=== PATIENT | female | born 1935 | race Caucasian/White ===

== ENCOUNTER 2021-09-30 13:22 | Inpatient (IN) | payer MEDICARE, BC ==
[2021-09-30 14:01] LABS: Bilirubin Neg (Negative); Blood, Urine 10 (Negative); Clarity Clear (Clear); Glucose, Urine (Dipstick) Normal (Negative); Ketone, Urine 5 mg/dL (Negative); Leukocyte Negative (Negative); Nitrite Negative (Negative); Protein, Urine (Dipstick) Negative (Neg-Trace); Specific Gravity, Urine 1.005 (1.002-1.036); Urobilinogen Normal mg/dL (Less than 2)
[2021-09-30 14:16] LABS: Bacteria/HPF Rare-Few HPF (None Seen); RBC/HPF 0-3 HPF (0-3); Squamous Epithelial 0-3 HPF (0-3); WBC/HPF 0-3 HPF (0-3)
[2021-09-30 14:58] LABS: ALT (SGPT) 81 U/L (8-55); AST (SGOT) 36 U/L (5-34); Albumin 4.1 g/dL (3.4-4.8); Alkaline Phosphatase 69 U/L (40-110); Anion Gap 14 mmol/L (10-20); BUN (Urea Nitrogen) 7 mg/dL (9.8-20.1); Bilirubin, Total 0.9 mg/dL (0.2-1.2); Calc. Creatinine Clearance 0 mL/min (70-130); Calcium 10.5 mg/dL (7.8-10.44); Carbon Dioxide 28 mmol/L (23-31); Estimated GFR 92; Globulin 2.6 g/dL (2.4-3.5); Glucose 155 mg/dL (83-110); Potassium 3.5 mmol/L (3.5-5.1); Protein, Total 6.7 g/dL (5.8-8.1)
[2021-09-30 15:07] LABS: Chloride 71 mmol/L (98-107); Sodium 109 mmol/L (136-145)
[2021-09-30 15:39] LABS: Hemoglobin 15.8 g/dL (12.0-15.5); Mean Corpuscular HGB CONC 40.7 g/dL (32.0-36.0); Mean Corpuscular Hemoglobin 32.3 pg (27.0-33.0); Mean Corpuscular Volume 79.3 fl (81.6-98.3); Mean Platelet Volume 9.1 fl (7.4-10.4); Platelet Count 466 10x3/uL (150-450); RBC Distribution Width 11.5 % (11.5-14.5); Red Blood Cell (RBC) Count 4.89 10x6/uL (3.90-5.03); White Blood Cell (WBC) Count 13.1 10x3/uL (3.5-10.5)
[2021-09-30 15:40] LABS: #Monocytes 1.3 10x3/uL (0.0-1.1); #Neutrophils 11.2 10x3/uL (1.5-8.4); %Basophils 0.2 % (0.0-2.0); %Eosinophils 0.2 % (0.0-6.0); %Lymphocytes 2.7 % (18.0-47.0); %Monocytes 10.2 % (0.0-10.0); %Neutrophils 85.6 % (40.0-75.0)
[2021-09-30] MEDS ORDERED: Ondansetron PF 4 MG/2 ML Vial ONE (16:09)
[2021-09-30] MEDS ORDERED: Sodium Chloride 0.9% 500 ML IV SCH (16:45)
[2021-09-30] MEDS ORDERED: Sodium Chloride 3% 500 ML IVPB SCH (16:45)
[2021-09-30] MEDS ORDERED: SODIUM CHLORIDE 3% IVPB SCH (17:00)
[2021-09-30] MEDS ORDERED: Acetaminophen 325 MG TAB PO PRN (18:03)
[2021-09-30] MEDS ORDERED: Ondansetron PF 4 MG/2 ML Vial IVP PRN (18:03)
[2021-09-30] MEDS ORDERED: Ondansetron ODT 4 MG TAB PO PRN (18:03)
[2021-09-30] MEDS ORDERED: Insulin Regular 300 UNITS/3 ML VIAL SC PRN (18:08)
[2021-09-30] MEDS ORDERED: Dextrose 5% in Water 1,000 ML IV PRN (18:08)
[2021-09-30] MEDS ORDERED: Dextrose 50% Abboject 50 ML SYRINGE SLOW IVP PRN (18:08)
[2021-09-30 19:35] LABS: Anion Gap 12 mmol/L (10-20); BUN (Urea Nitrogen) 6 mg/dL (9.8-20.1); Calc. Creatinine Clearance 124 mL/min (70-130); Calcium 9.6 mg/dL (7.8-10.44); Carbon Dioxide 27 mmol/L (23-31); Chloride 75 mmol/L (98-107); Estimated GFR 93; Glucose 133 mg/dL (83-110); Potassium 3.1 mmol/L (3.5-5.1)
[2021-09-30 19:52] LABS: Sodium 111 mmol/L (136-145)
[2021-09-30] MEDS ORDERED: Potassium Chloride 20 MEQ TAB PO SCH (20:15)
[2021-09-30] MEDS ORDERED: Famotidine 20 MG TAB PO SCH (21:00)
[2021-09-30 22:07] LABS: Glucose 158 mg/dL (83-110)
[2021-09-30 23:22] LABS: Anion Gap 10 mmol/L (10-20); BUN (Urea Nitrogen) 12 mg/dL (9.8-20.1); Calc. Creatinine Clearance 109 mL/min (70-130); Calcium 9.1 mg/dL (7.8-10.44); Carbon Dioxide 28 mmol/L (23-31); Chloride 77 mmol/L (98-107); Estimated GFR 90; Glucose 107 mg/dL (83-110); Potassium 3.2 mmol/L (3.5-5.1)
[2021-09-30 23:31] LABS: Sodium 112 mmol/L (136-145)
[2021-10-01 06:18] LABS: Anion Gap 11 mmol/L (10-20); BUN (Urea Nitrogen) 12 mg/dL (9.8-20.1); Calc. Creatinine Clearance 113 mL/min (70-130); Calcium 8.9 mg/dL (7.8-10.44); Carbon Dioxide 27 mmol/L (23-31); Chloride 78 mmol/L (98-107); Estimated GFR 91; Glucose 110 mg/dL (83-110); Potassium 3.5 mmol/L (3.5-5.1)
[2021-10-01 06:27] LABS: Sodium 112 mmol/L (136-145)
[2021-10-01 06:59] LABS: #Eosinphils 0.1 10x3/uL (0.0-0.5); #Monocytes 1.9 10x3/uL (0.0-1.1); #Neutrophils 11.1 10x3/uL (1.5-8.4); %Basophils 0.1 % (0.0-2.0); %Eosinophils 0.9 % (0.0-6.0); %Lymphocytes 3.5 % (18.0-47.0); %Neutrophils 80.6 % (40.0-75.0); Hemoglobin 12.9 g/dL (12.0-15.5); Mean Corpuscular HGB CONC 38.4 g/dL (32.0-36.0); Mean Corpuscular Hemoglobin 31.2 pg (27.0-33.0); Mean Corpuscular Volume 81.2 fl (81.6-98.3); Mean Platelet Volume 8.3 fl (7.4-10.4); Platelet Count 437 10x3/uL (150-450); RBC Distribution Width 11.8 % (11.5-14.5); Red Blood Cell (RBC) Count 4.14 10x6/uL (3.90-5.03); White Blood Cell (WBC) Count 13.8 10x3/uL (3.5-10.5)
[2021-10-01] MEDS: Famotidine 20 MG TAB PO SCH ×2 (07:52→20:26)
[2021-10-01] MEDS: Enoxaparin Sodium 40 MG/0.4 ML SYRINGE SC SCH (07:52)
[2021-10-01 08:20] LABS: Glucose 100 mg/dL (83-110)
[2021-10-01 10:29] LABS: Sodium 114 mmol/L (136-145)
[2021-10-01] MEDS ORDERED: Potassium Chloride 20 MEQ TAB PO SCH ×2 (13:15→19:45)
[2021-10-01] MEDS ORDERED: Sodium Chloride 1 GM TAB PO SCH (15:00)
[2021-10-01] MEDS: Guaifenesin DM 100-10/5 ML UDCUP PO PRN ×2 (19:18→23:31)
[2021-10-01 19:25] LABS: Potassium 3.4 mmol/L (3.5-5.1)
[2021-10-01 19:33] LABS: Sodium 119 mmol/L (136-145)
[2021-10-02 04:36] LABS: Anion Gap 13 mmol/L (10-20); BUN (Urea Nitrogen) 14 mg/dL (9.8-20.1); Calc. Creatinine Clearance 117 mL/min (70-130); Carbon Dioxide 25 mmol/L (23-31); Chloride 86 mmol/L (98-107); Estimated GFR 92; Glucose 103 mg/dL (83-110); Potassium 4.1 mmol/L (3.5-5.1); Sodium 120 mmol/L (136-145)
[2021-10-02] MEDS: Famotidine 20 MG TAB PO SCH ×2 (08:17→21:04)
[2021-10-02] MEDS: Enoxaparin Sodium 40 MG/0.4 ML SYRINGE SC SCH (08:17)
[2021-10-02] MEDS: Guaifenesin DM 100-10/5 ML UDCUP PO PRN (11:03)
[2021-10-02 11:15] VITALS: BMI 36.1
[2021-10-02 15:53] LABS: Anion Gap 15 mmol/L (10-20); BUN (Urea Nitrogen) 15 mg/dL (9.8-20.1); Calc. Creatinine Clearance 104 mL/min (70-130); Calcium 9.2 mg/dL (7.8-10.44); Carbon Dioxide 26 mmol/L (23-31); Chloride 89 mmol/L (98-107); Estimated GFR 90; Glucose 133 mg/dL (83-110); Potassium 4.4 mmol/L (3.5-5.1); Sodium 126 mmol/L (136-145)
[2021-10-02] MEDS: HumaLOG 300 UNITS/3 ML VIAL SC PRN (16:54)
[2021-10-02 17:05] LABS: Magnesium 1.8 mg/dL (1.6-2.6)
[2021-10-02] MEDS ORDERED: Dextrose 5% in Water 1,000 ML IV SCH (17:30)
[2021-10-02] MEDS ORDERED: Bisacodyl 5 MG TAB PO SCH (20:45)
[2021-10-02] MEDS: Artificial Tear Sol 15 ML BOT EA EYE SCH (21:03)
[2021-10-02 21:05] LABS: Anion Gap 13 mmol/L (10-20); BUN (Urea Nitrogen) 20 mg/dL (9.8-20.1); Calc. Creatinine Clearance 76 mL/min (70-130); Carbon Dioxide 27 mmol/L (23-31); Chloride 90 mmol/L (98-107); Estimated GFR 75; Glucose 139 mg/dL (83-110); Potassium 3.9 mmol/L (3.5-5.1); Sodium 126 mmol/L (136-145)
[2021-10-03 05:18] LABS: Anion Gap 14 mmol/L (10-20); BUN (Urea Nitrogen) 14 mg/dL (9.8-20.1); Calc. Creatinine Clearance 110 mL/min (70-130); Calcium 8.9 mg/dL (7.8-10.44); Carbon Dioxide 26 mmol/L (23-31); Chloride 91 mmol/L (98-107); Estimated GFR 91; Glucose 127 mg/dL (83-110); Potassium 3.4 mmol/L (3.5-5.1); Sodium 128 mmol/L (136-145)
[2021-10-03] MEDS ORDERED: Amlodipine 5 MG TAB PO SCH (07:00)
[2021-10-03] MEDS ORDERED: Polyethylene Glycol 3350 17 GM Packet PO PRN (09:00)
[2021-10-03] MEDS: Ezetimibe 10 MG TAB PO SCH (10:14)
[2021-10-03] MEDS: Enoxaparin Sodium 40 MG/0.4 ML SYRINGE SC SCH (10:14)
[2021-10-03] MEDS: Famotidine 20 MG TAB PO SCH ×2 (10:14→20:58)
[2021-10-03] MEDS: Aspirin 81 mg Enteric Coated Tablet PO SCH (10:14)
[2021-10-03] MEDS: Artificial Tear Sol 15 ML BOT EA EYE SCH ×2 (10:15→20:58)
[2021-10-03 13:09] LABS: Anion Gap 13 mmol/L (10-20); BUN (Urea Nitrogen) 13 mg/dL (9.8-20.1); Calc. Creatinine Clearance 104 mL/min (70-130); Calcium 8.7 mg/dL (7.8-10.44); Carbon Dioxide 26 mmol/L (23-31); Chloride 90 mmol/L (98-107); Estimated GFR 90; Glucose 205 mg/dL (83-110); Potassium 3.3 mmol/L (3.5-5.1); Sodium 126 mmol/L (136-145)
[2021-10-03] MEDS ORDERED: Potassium Chloride 20 MEQ TAB PO SCH (15:00)
[2021-10-03] MEDS: HumaLOG 300 UNITS/3 ML VIAL SC PRN (20:59)
[2021-10-03] MEDS ORDERED: Metoprolol Tartrate 25 MG TAB PO SCH (22:15)
[2021-10-04 04:57] LABS: Anion Gap 13 mmol/L (10-20); BUN (Urea Nitrogen) 11 mg/dL (9.8-20.1); Calc. Creatinine Clearance 121 mL/min (70-130); Calcium 8.9 mg/dL (7.8-10.44); Carbon Dioxide 26 mmol/L (23-31); Chloride 95 mmol/L (98-107); Estimated GFR 93; Glucose 103 mg/dL (83-110); Potassium 4.4 mmol/L (3.5-5.1); Sodium 130 mmol/L (136-145)
[2021-10-04] MEDS ORDERED: hydrALAZINE 20 MG/ML VIAL SLOW IVP SCH (06:00)
[2021-10-04] MEDS: Ezetimibe 10 MG TAB PO SCH (09:22)
[2021-10-04] MEDS: Famotidine 20 MG TAB PO SCH ×2 (09:22→21:59)
[2021-10-04] MEDS: Aspirin 81 mg Enteric Coated Tablet PO SCH (09:22)
[2021-10-04] MEDS: Metoprolol Tartrate 25 MG TAB PO SCH ×2 (09:22→22:45)
[2021-10-04] MEDS: Amlodipine 10 MG TAB PO SCH (09:22)
[2021-10-04] MEDS: Enoxaparin Sodium 40 MG/0.4 ML SYRINGE SC SCH (09:22)
[2021-10-04] MEDS: Artificial Tear Sol 15 ML BOT EA EYE SCH ×2 (09:23→22:06)
[2021-10-05 09:18] LABS: Anion Gap 12 mmol/L (10-20); BUN (Urea Nitrogen) 14 mg/dL (9.8-20.1); Calc. Creatinine Clearance 106 mL/min (70-130); Calcium 9.3 mg/dL (7.8-10.44); Carbon Dioxide 30 mmol/L (23-31); Chloride 93 mmol/L (98-107); Estimated GFR 90; Glucose 137 mg/dL (83-110); Sodium 131 mmol/L (136-145)
[2021-10-05] MEDS: Artificial Tear Sol 15 ML BOT EA EYE SCH ×2 (12:06→22:15)
[2021-10-05] MEDS: Famotidine 20 MG TAB PO SCH ×2 (12:06→22:12)
[2021-10-05] MEDS: Metoprolol Tartrate 25 MG TAB PO SCH ×2 (12:06→22:13)
[2021-10-05] MEDS: Enoxaparin Sodium 40 MG/0.4 ML SYRINGE SC SCH (12:06)
[2021-10-05] MEDS: Ezetimibe 10 MG TAB PO SCH (12:06)
[2021-10-05] MEDS: Amlodipine 10 MG TAB PO SCH (12:07)
[2021-10-05] MEDS: Aspirin 81 mg Enteric Coated Tablet PO SCH (12:07)
[2021-10-06] MEDS: Enoxaparin Sodium 40 MG/0.4 ML SYRINGE SC SCH (08:16)
[2021-10-06] MEDS: Amlodipine 10 MG TAB PO SCH (08:16)
[2021-10-06] MEDS: Artificial Tear Sol 15 ML BOT EA EYE SCH (08:16)
[2021-10-06] MEDS: Aspirin 81 mg Enteric Coated Tablet PO SCH (08:16)
[2021-10-06] MEDS: Famotidine 20 MG TAB PO SCH (08:16)
[2021-10-06] MEDS: Metoprolol Tartrate 25 MG TAB PO SCH (08:16)
[2021-10-06] MEDS: Ezetimibe 10 MG TAB PO SCH (08:16)
[2021-10-06 08:30] LABS: Anion Gap 16 mmol/L (10-20); BUN (Urea Nitrogen) 12 mg/dL (9.8-20.1); Calc. Creatinine Clearance 114 mL/min (70-130); Calcium 9.1 mg/dL (7.8-10.44); Carbon Dioxide 25 mmol/L (23-31); Chloride 96 mmol/L (98-107); Estimated GFR 92; Glucose 131 mg/dL (83-110); Potassium 4.2 mmol/L (3.5-5.1); Sodium 133 mmol/L (136-145)
[2021-10-06] MEDS: HumaLOG 300 UNITS/3 ML VIAL SC PRN (12:47)
[2021-10-06 16:39] VITALS: BP 143/67; TEMP 99.3
== END 2021-10-06 17:00 | DRG 645 ==
LOC: CSHERS 13:22 → CSHTELE 16:06 → CSHIMCU 18:44 → CSHTELE 10-02 15:59
PROVIDERS: ADMIT Internal Medicine; ATTEND Hospitalist
DX: E22.2 Syndrome of inappropriate secretion of antidiuretic hormone (principal); I25.10 Atherosclerotic heart disease of native coronary artery without angina pectoris; Z86.16 Personal history of COVID-19; R53.81 Other malaise; E87.8 Other disorders of electrolyte and fluid balance, not elsewhere classified; R63.0 Anorexia; E87.6 Hypokalemia; E11.22 Type 2 diabetes mellitus with diabetic chronic kidney disease; N18.1 Chronic kidney disease, stage 1; E66.9 Obesity, unspecified; E83.52 Hypercalcemia; Z79.82 Long term (current) use of aspirin; Z79.899 Other long term (current) drug therapy; Z91.048 Other nonmedicinal substance allergy status; Z88.8 Allergy status to other drugs, medicaments and biological substances; Z91.040 Latex allergy status; Z79.02 Long term (current) use of antithrombotics/antiplatelets; Z79.4 Long term (current) use of insulin; Z85.3 Personal history of malignant neoplasm of breast; Z95.5 Presence of coronary angioplasty implant and graft; Z90.11 Acquired absence of right breast and nipple; Z90.710 Acquired absence of both cervix and uterus; Z90.722 Acquired absence of ovaries, bilateral; Z87.891 Personal history of nicotine dependence; Z82.49 Family history of ischemic heart disease and other diseases of the circulatory system; Z82.3 Family history of stroke; Z68.36 Body mass index [BMI] 36.0-36.9, adult
CPT/HCPCS: 36415; 36416; 71045; 80048; 80053; 81003; 81015; 82533; 82947; 83605; 83735; 83880; 83930; 83935; 84300; 84443; 84484; 85025; 93005; 93010; 94760; J0360; J1650; J1815; J2405; J7070; J7131

== ENCOUNTER 2023-08-28 14:44 | Outpatient (CLI) | payer MEDICARE | END 2023-08-28 14:45 | disposition home or self-care (01) | LOC: CSHMAMMO 14:44 | PROVIDERS: ATTEND Family Medicine | DX: M81.0 Age-related osteoporosis without current pathological fracture (principal); Z78.0 Asymptomatic menopausal state | CPT/HCPCS: 77080 ==

== ENCOUNTER 2024-04-05 15:40 | Outpatient (CLI) | payer MEDICARE | END 2024-04-05 15:41 | disposition home or self-care (01) | LOC: CSHRAD 15:40 | PROVIDERS: ATTEND Nurse Practitioner Family | DX: R06.02 Shortness of breath (principal); R05.9 Cough, unspecified; R91.8 Other nonspecific abnormal finding of lung field | CPT/HCPCS: 71046 ==